=== PATIENT | male | born 2000 | race Caucasian/White ===

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

== ENCOUNTER 2021-10-01 04:00 | Emergency (ER) | payer BC, OTHER ==
[2021-10-01] MEDS ORDERED: Lactated Ringers 1,000 ML IV ONE ×2 (05:05→06:17)
[2021-10-01] MEDS ORDERED: Ondansetron 4 MG Tab.DIS PO ONE (05:07)
--- NOTE | 2021-10-01 05:09 | EDM.PDOC ---
ED HPI GENERAL MEDICAL PROBLEM - General Chief Complaint: Abdominal Pain Stated Complaint: DISTENDED ABDOMEN Time Seen by Provider: 10/01/21 04:20 Source of Information: Reports: Patient - History of Present Illness INITIAL COMMENTS - FREE TEXT/NARRATIVE: 21-year-old gentleman with a history of Crohn's disease came to the emergency department due to a 4-day history of abdominal pain, distention, nausea, vomiting, and constipation. He had a colon resection for treatment several years ago. Several days ago he helped his mom move a very heavy piece of furniture and ever since has been experiencing some anterior abdominal pain in the area of a abdominal hernia that he developed after surgery. He has had nausea with vomiting as mentioned above since that time. The nausea and distention/pain increased to the point he felt it was best to come to the emergency department. He has not had fever, chills, upper respiratory symptoms, chest pain, shortness of breath. umbilical Pain Score (Numeric/FACES): 5 - Related Data Allergies Allergy/AdvReac Type Severity Reaction Status Date / Time No Known Allergies Allergy Verified 12/28/19 08:29 Home Meds: Home Meds Albuterol [Ventolin HFA] 1 puff INH ASDIRECTED PRN 12/28/19 [History] Ondansetron [Ondansetron ODT] 4 mg PO Q6H PRN 12/28/19 [History] Ustekinumab [Stelara] 45 mg SQ WEEKLY 12/28/19 [History] FLUoxetine HCl [Prozac] 20 mg PO DAILY 10/01/21 [History] Past Medical History Respiratory History: Reports: Asthma Gastrointestinal History: Reports: Inflammatory Bowel Disease Other Gastrointestinal History: crohn's Social & Family History - Family History Family Medical History: No Pertinent Family History - Tobacco Use Tobacco Use Status *Q: Never Tobacco User Second Hand Smoke Exposure: No - Caffeine Use Caffeine Use: Reports: Coffee, Soda - Recreational Drug Use Recreational Drug Use: No ED ROS GENERAL - Review of Systems Review Of Systems: See Below Constitutional: Reports: No Symptoms HEENT: Reports: No Symptoms Respiratory: Reports: No Symptoms Cardiovascular: Reports: No Symptoms Endocrine: Reports: No Symptoms GI/Abdominal: Reports: Abdominal Pain, Constipation, Nausea, Vomiting : Reports: No Symptoms Musculoskeletal: Reports: No Symptoms Skin: Reports: No Symptoms Neurological: Reports: No Symptoms Psychiatric: Reports: No Symptoms Hematologic/Lymphatic: Reports: No Symptoms Immunologic: Reports: No Symptoms ED EXAM, GI/ABD - Physical Exam Exam: See Below Exam Limited By: No Limitations General Appearance: Alert, No Apparent Distress Eyes: Bilateral: EOMI Head: Atraumatic, Normocephalic Neck: Normal Inspection Respiratory/Chest: No Respiratory Distress, Lungs Clear Cardiovascular: Regular Rate, Rhythm GI/Abdominal Exam: Distended, Tender, Abnormal Bowel Sounds Back Exam: Normal Inspection Extremities: Normal Inspection Neurological: Alert, Oriented, CN II-XII Intact, Normal Cognition, Normal Gait Psychiatric: Normal Affect, Normal Mood Skin Exam: Warm, Dry Course - Vital Signs Text/Narrative:: Patient was given 2 L of lactated Ringer's and states that he feels much better. He was able to walk to the bathroom and urinate. Pending findings of CT abdomen and pelvis with contrast patient will be discharged to home and advised to follow-up with his primary care physician for likely referral to general surgery to correct abdominal hernia and follow-up with his GI doctor today evaluate whether or not he is having a Crohn's flare in conjunction with abdominal hernia pain. Last Recorded V/S: Last Vital Signs Temp 37.0 C 10/01/21 04:15 Pulse 101 H 10/01/21 04:15 Resp 18 10/01/21 04:15 BP 141/88 H 10/01/21 04:15 Pulse Ox 96 10/01/21 04:15 - Orders/Labs/Meds Orders: Active Orders 24 hr Category Date Time Status Abdomen Pelvis w Cont [CT] Stat Exams 10/01/21 05:21 Taken Lactated Ringers [Ringers, Lactated] 1,000 ml Med 10/01/21 06:17 Active IV BOLUS Medication Orders Lactated Ringer's (Ringers, Lactated) 1,000 mls @ 999 mls/hr IV BOLUS ONE Stop: 10/01/21 07:17 Last Admin: 10/01/21 06:25 Dose: 999 mls/hr Documented by: THOMAS Labs: Laboratory Tests 10/01/21 10/01/21 Range/Units 04:25 04:25 WBC 9.2 (3.2-10.1) x10-3/uL RBC 5.07 (3.90-5.90) x10(6)uL Hgb 14.7 (12.9-17.7) g/dL Hct 44.6 (38.3-50.1) % MCV 88.0 (80.8-98.7) fL MCH 29.0 (27.0-33.3) pg MCHC 32.9 (28.7-35.3) g/dL RDW 12.7 (12.4-15.0) % Plt Count 262 (117-477) x10(3)uL MPV 7.5 (6.7-11.0) fL Neut % (Auto) 62.4 (40.3-71.8) % Lymph % (Auto) 27.5 (15.8-45.3) % [place] % (Auto) 8.7 (5.5-15.2) % Eos % (Auto) 0.9 (0.1-6.8) % Baso % (Auto) 0.5 (0.3-3.8) % Neut # (Auto) 5.7 (1.7-6.9) x10-3/uL Lymph # (Auto) 2.5 (0.5-4.5) x10-3/uL [place] # (Auto) 0.8 (0.0-1.2) x10-3/uL Eos # (Auto) 0.1 (0.0-0.6) x10-3/uL Baso # (Auto) 0.0 (0.0-0.3) x10-3/uL Sodium 141 (135-145) mmol/L Potassium 3.5 (3.5-5.3) mmol/L Chloride 102 (100-110) mmol/L Carbon Dioxide 32 (21-32) mmol/L BUN 11 (7-18) mg/dL Creatinine 1.1 (0.70-1.30) mg/dL Est Cr Clr Drug Dosing 95.86 mL/min Estimated GFR (MDRD) > 60 (>60) BUN/Creatinine Ratio 10.0 (9-20) Glucose 97 (80-116) mg/dL Calcium 9.3 (8.6-10.2) mg/dL Total Bilirubin 0.4 (0.1-1.3) mg/dL AST 23 D (5-25) IU/L ALT 37 H D (12-36) U/L Alkaline Phosphatase 111 (56-112) IU/L Total Protein 8.1 H (6.0-8.0) g/dL Albumin 4.1 (3.5-5.2) g/dL Globulin 4.0 g/dL Albumin/Globulin Ratio 1.0 Meds: Medications Generic Name Dose Route Start Last Admin Trade Name Praveena PRN Reason Stop Dose Admin Lactated Ringer's 1,000 mls @ 999 mls/hr 10/01/21 06:17 10/01/21 06:25 Ringers, Lactated IV 10/01/21 07:17 999 mls/hr BOLUS ONE Administration Discontinued Medications Generic Name Dose Route Start Last Admin Trade Name Freq PRN Reason Stop Dose Admin Lactated Ringer's 1,000 mls @ 999 mls/hr 10/01/21 05:05 10/01/21 05:15 Ringers, Lactated IV 10/01/21 06:05 999 mls/hr BOLUS ONE Administration Iopamidol 100 ml 10/01/21 05:53 10/01/21 06:03 Iopamidol 755 Mg/Ml 100 Ml Bottle IV 10/01/21 05:54 100 ml . DIRECTED ONE Administration Ondansetron HCl 4 mg 10/01/21 05:07 10/01/21 05:22 Ondansetron 4 Mg Tab.Dis PO 10/01/21 05:08 Not Given ONETIME ONE Ondansetron HCl 4 mg 10/01/21 05:18 10/01/21 05:24 Ondansetron 4 Mg/2 Ml Sdv IVPUSH 10/01/21 05:19 4 mg ONETIME ONE Administration Departure - Departure Time of Disposition: 07:05 Disposition: Home, Self-Care 01 Condition: Good Clinical Impression: Abdominal wall hernia, Nausea and vomiting, Constipation, Crohn's disease, History of resection of small bowel - Discharge Information *PRESCRIPTION DRUG MONITORING PROGRAM REVIEWED*: Not Applicable *COPY OF PRESCRIPTION DRUG MONITORING REPORT IN PATIENT CLEMENTINE: Not Applicable Instructions: Nausea, Adult, Hernia, Adult Referrals: Priya Garcia PA-C [Primary Care Provider] - Forms: ED Department Discharge Additional Instructions: Patient advised to follow-up with his primary care physician and/or surgery. Patient advised to follow-up with his GI doctor for further recommendations regarding his Crohn's and constipation. Sepsis Event Note (ED) - Evaluation Sepsis Screening Result: No Definite Risk - Focused Exam Vital Signs: Vital Signs Temp Pulse Resp BP Pulse Ox 10/01/21 04:15 37.0 C 101 H 18 141/88 H 96 - My Orders Last 24 Hours: My Active Orders 10/01/21 05:21 Abdomen Pelvis w Cont [CT] Stat 10/01/21 06:17 Lactated Ringers [Ringers, Lactated] 1,000 ml IV BOLUS - Assessment/Plan Last 24 Hours: My Active Orders 10/01/21 05:21 Abdomen Pelvis w Cont [CT] Stat 10/01/21 06:17 Lactated Ringers [Ringers, Lactated] 1,000 ml IV BOLUS
[2021-10-01] MEDS ORDERED: Ondansetron 4 MG/2 ML SDV IVPUSH ONE (05:18)
[2021-10-01] MEDS ORDERED: Iopamidol 755 Mg/ML 100 ML Bottle IV ONE (05:53)
== END 2021-10-01 07:30 | disposition home or self-care (01) ==
LOC: FB.ED 04:00
DX: K43.9 Ventral hernia without obstruction or gangrene (principal); K50.90 Crohn's disease, unspecified, without complications; K59.00 Constipation, unspecified; R11.2 Nausea with vomiting, unspecified; Z87.19 Personal history of other diseases of the digestive system
CPT/HCPCS: 36415; 74177; 80053; 85025; 96374; 99284-25; J2405; J7120; Q9967